=== PATIENT | female | born 1955 ===

== ENCOUNTER 2020-11-19 06:00 | Day surgery (SDC) | payer OTHER ==
[~2020-11-19 06:00] MED LIST: ADULT LOW DOSE81 M1 PO; CALTRATE PO; EVISTA60 MG PO; TOPROL XL25 M1 PO; [UNRECOGNIZED DRUG - OTHER] PO; [UNRECOGNIZED DRUG - OTHER] PO
[2020-11-19] MEDS ORDERED: IBU800 MG PO (09:28)
== END 2020-11-19 10:20 | disposition home or self-care (01) ==
LOC: CIR.AMB 06:00
PROVIDERS: ATTEND Obstetrics & Gynecology Gynecology
DX: N84.0 Polyp of corpus uteri (principal); Z20.822 Contact with and (suspected) exposure to COVID-19

== ENCOUNTER 2025-05-22 06:00 | Day surgery (SDC) | payer OTHER ==
[~2025-05-22 06:00] MED LIST changes: +IBU800 MG PO
[2025-05-22] MEDS ORDERED: POVIDONE-IODINE 118 ML BOTT TOP ONE (07:08)
[2025-05-22] MEDS ORDERED: SUGAMMADEX SODIUM 200 MG/2 ML VIAL IV ONE (07:58)
[2025-05-22] MEDS ORDERED: IBU600 MG PO (08:23)
== END 2025-05-22 11:20 | disposition home or self-care (01) ==
LOC: CIR.AMB 06:00
PROVIDERS: ATTEND Obstetrics & Gynecology Gynecology
DX: N84.0 Polyp of corpus uteri (principal)